=== PATIENT | male | born 1960 | race Hispanic/Latino ===

== ENCOUNTER 2017-10-24 07:55 | Emergency (ER) | payer SELFPAY ==
[2017-10-24 12:28] VITALS: BP 160/85
[2017-10-24] MEDS ORDERED: MOTRIN PO ONE (12:59)
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
--- NOTE | 2017-10-24 13:33 | XRay Report ---
Right shoulder: Pain. The shoulder joint is well aligned. The articular surfaces are smooth and the bones are well-mineralized. A small calcification is noted superior to the acetabulum. It is unclear as to whether this could lie within a tendon there is also a curvilinear area of increased density above the humerus head that may represent tendinous calcification. No other findings. Impression: Suspicion of calcific tendinitis.
== END 2017-10-24 14:30 | disposition home or self-care (01) ==
LOC: ED 07:55
DX: S46.911A Strain of unspecified muscle, fascia and tendon at shoulder and upper arm level, right arm, initial encounter (principal); Y04.2XXA Assault by strike against or bumped into by another person, initial encounter; Y93.89 Activity, other specified; Y99.8 Other external cause status; Y92.89 Other specified places as the place of occurrence of the external cause